=== PATIENT | male | born 1950 | race Caucasian/White ===

== ENCOUNTER 2019-11-07 11:20 | Observation (INO) ==
[2019-11-07 11:58] LABS: Basophils % 0.5 %; Eosinophils # 0.1 K/mcL (0.0-0.6); Eosinophils % 2.3 %; Hematocrit 39.3 % (37.5-50.1); Hemoglobin 14.1 g/dL (12.9-16.9); Immature Granulocytes % 0.8 % (0-4); Lymphocytes # 1.8 K/mcL (0.6-4.6); Lymphocytes % 30.1 %; Mean Corpuscular HGB Conc 35.9 g/dL (31.6-35.5); Mean Corpuscular Hemoglobin 33.3 pg (28.0-33.3); Mean Corpuscular Volume 92.7 fL (83.0-100.0); Mean Platelet Volume 9.5 fL (9.4-12.4); Monocytes # 0.6 K/mcL (0.0-1.3); Monocytes % 9.7 %; Neutrophils # 3.5 K/mcL (1.6-8.9); Platelet Count 161 K/mcL (140-400); Red Blood Count 4.24 M/mcL (4.19-5.50); Red Cell Distribution Width 12.4 % (11.5-14.5); Segmented Neutrophils % 56.6 %; White Blood Count 6.1 K/mcL (4.3-11.1)
[2019-11-07 12:13] LABS: BUN/Creatinine Ratio 18 (6-26); Blood Urea Nitrogen 33 mg/dL (8-23); Calcium 9.3 mg/dL (8.6-10.3); Carbon Dioxide 19 mEq/L (23-29); Chloride 103 mEq/L (98-107); Glucose 158 mg/dL (70-105); Osmolality,Calculated 285 (280-300); Sodium 132 mEq/L (136-145); eGFR For African Americans 44 (> 60); eGFR For Non-African Americans 36 (> 60)
[2019-11-07 12:17] LABS: Troponin I < 0.03 ng/mL (< 0.04)
[2019-11-07] MEDS ORDERED: 0.9 % Sodium Chloride 1,000 ML IVC ONE (12:22)
[2019-11-07] MEDS ORDERED: 0.9 % Sodium Chloride 1,000 ML IVC SCH (12:30)
[2019-11-07] MEDS ORDERED: Ondansetron 4 MG/2 ML VIAL IVP PRN (13:25)
[2019-11-07] MEDS ORDERED: Naloxone 0.4 MG/ML INJ IVP PRN (13:25)
[2019-11-07] MEDS ORDERED: Acetaminophen 325 MG TABLET PO PRN (13:25)
[2019-11-07 15:14] LABS: Blood Urea Nitrogen 32 mg/dL (8-23)
[2019-11-07] MEDS: 0.9 % Sodium Chloride 1,000 ML IVC SCH (18:15)
[2019-11-07] MEDS ORDERED: D5% in Water 1,000 ML IVC PRN (18:20)
[2019-11-07] MEDS ORDERED: *HR* Dextrose 50 % in Water (Vial) 50 ML VIAL IVP PRN (18:20)
[2019-11-07] MEDS ORDERED: Dextrose Gel 15 GM/37.5 ML TUBE PO PRN ×2 (18:20)
[2019-11-07] MEDS: Metoprolol XL (24 HR) Succ 25 MG TAB.ER.24H PO SCH (20:27)
[2019-11-07] MEDS: Apixaban 5 MG TABLET PO SCH (20:28)
[2019-11-07] MEDS ORDERED: Insulin LISPRO 300 UNITS/3 ML VIAL SQ SCH (21:00)
[2019-11-08] MEDS: 0.9 % Sodium Chloride 1,000 ML IVC SCH (02:22)
[2019-11-08 04:58] LABS: Hematocrit 36.2 % (37.5-50.1); Hemoglobin 12.8 g/dL (12.9-16.9); Mean Corpuscular HGB Conc 35.4 g/dL (31.6-35.5); Mean Corpuscular Hemoglobin 33.1 pg (28.0-33.3); Mean Corpuscular Volume 93.5 fL (83.0-100.0); Mean Platelet Volume 9.5 fL (9.4-12.4); Platelet Count 135 K/mcL (140-400); Red Blood Count 3.87 M/mcL (4.19-5.50); Red Cell Distribution Width 12.4 % (11.5-14.5); White Blood Count 4.8 K/mcL (4.3-11.1)
[2019-11-08 05:16] LABS: Troponin I < 0.03 ng/mL (< 0.04)
[2019-11-08 05:18] LABS: BUN/Creatinine Ratio 21 (6-26); Blood Urea Nitrogen 26 mg/dL (8-23); Calcium 8.8 mg/dL (8.6-10.3); Chloride 108 mEq/L (98-107); Chol/HDL Ratio 4.6 (0-4.9); Cholesterol 116 mg/dL (< 200); Glucose 123 mg/dL (70-105); HDL Cholesterol 25 mg/dL (40-59); LDL Cholesterol,Calculated 23 mg/dL (0-99); Magnesium 1.9 mg/dL (1.6-2.6); Osmolality,Calculated 290 (280-300); Potassium 4.5 mEq/L (3.5-5.1); Sodium 137 mEq/L (136-145); Triglycerides 342 mg/dL (< 150); eGFR For African Americans > 60 (> 60); eGFR For Non-African Americans 58 (> 60)
[2019-11-08 05:27] LABS: Carbon Dioxide 22 mEq/L (23-29)
[2019-11-08] MEDS ORDERED: Insulin LISPRO 300 UNITS/3 ML VIAL SQ SCH (07:30)
[2019-11-08] MEDS: Metoprolol XL (24 HR) Succ 25 MG TAB.ER.24H PO SCH (08:00)
[2019-11-08] MEDS: Apixaban 5 MG TABLET PO SCH (08:01)
[2019-11-08] MEDS ORDERED: Cyanocobalamin (B-12) 1,000 MCG TABLET PO SCH (09:00)
[2019-11-08] MEDS ORDERED: Aspirin 81 MG TAB.CHEW PO SCH (09:00)
[2019-11-08 10:34] LABS: Estimated Average Glucose 160 mg/dl
[2019-11-08 10:50] VITALS: BP 133/68
== END 2019-11-08 12:00 | disposition home or self-care (01) ==
LOC: INPPIK 11:20 → EMEROOPIK 11:20 → INPPIK 13:22
PROVIDERS: ADMIT Family Medicine; ATTEND Family Medicine